=== PATIENT | male | born 1940 | race Caucasian/White ===

== ENCOUNTER 2019-03-13 20:58 | Inpatient (IN) | payer OTHER, BC ==
[~2019-03-13] VITALS: Ht 182.9 cm; Wt 103.0 kg
[2019-03-13 21:05] VITALS: Ht 182.9 cm; Wt 103.0 kg
[2019-03-13 21:20] LABS: BASOPHIL % 0.6 % (0-2); PLATELET COUNT 182 x10^3mcL (130-400); RED CELL DISTRIBUTION WIDTH 13.4 % (11.5-14.5)
[2019-03-13 21:38] LABS: CALCIUM 8.4 mg/dL (8.5-10.1); CARBON DIOXIDE 27.7 mmol/L (21-32); CHLORIDE SERUM 107 mmol/L (98-107); CREATININE SERUM 1.4 mg/dL (0.7-1.3); GLUCOSE SERUM 137 mg/dL (74-106); POTASSIUM SERUM 3.1 mmol/L (3.5-5.1); SODIUM SERUM 145 mmol/L (136-145)
[2019-03-13 21:41] LABS: ALBUMIN 3.2 g/dL (3.4-5.0); ALKALINE PHOSPHATASE 41 U/L (46-116); ALT/SGPT 40 U/L (16-63); AST/SGOT 25 U/L (15-37); BILIRUBIN TOTAL 0.4 mg/dL (0.20-1.00); TOTAL PROTEIN, SERUM 6.5 g/dL (6.4-8.2)
[2019-03-13 23:27] LABS: PHOSPHOROUS 3.3 mg/dL (2.5-4.9)
[2019-03-13 23:29] LABS: CHOLESTEROL/HDL RATIO 4.7
[2019-03-14 01:00] VITALS: BP 107/77
[2019-03-14 02:17] LABS: microscopic required? YES; urine erythrocyte TRACE (NEGATIVE)
[2019-03-14 02:29] LABS: AMPHETAMINE QUAL UR NONE DETECTED (See below)
[2019-03-14 05:38] VITALS: BP 125/71
[2019-03-14 07:25] LABS: BASOPHIL % 0.4 % (0-2); PLATELET COUNT 165 x10^3mcL (130-400); RED CELL DISTRIBUTION WIDTH 13.2 % (11.5-14.5)
[2019-03-14 07:59] LABS: CALCIUM 7.7 mg/dL (8.5-10.1); CARBON DIOXIDE 26.5 mmol/L (21-32); CHLORIDE SERUM 109 mmol/L (98-107); CREATININE SERUM 1.2 mg/dL (0.7-1.3); GLUCOSE SERUM 99 mg/dL (74-106); MAGNESIUM 1.8 mg/dL (1.8-2.4); PHOSPHOROUS 3.2 mg/dL (2.5-4.9); POTASSIUM SERUM 4.5 mmol/L (3.5-5.1); SODIUM SERUM 144 mmol/L (136-145)
[2019-03-14 08:28] VITALS: BP 115/64
[2019-03-14 11:59] VITALS: BP 125/63
[2019-03-14 12:55] VITALS: BP 134/76
== END 2019-03-14 13:48 | disposition home or self-care (01) | DRG 391 ==
LOC: ED 20:58 → DU 22:34
PROVIDERS: Emergency Medicine; Internal Medicine; ADMIT Internal Medicine
PROC: 0HQMXZZ Repair Right Foot Skin, External Approach (ICD-10-PCS; principal; 2019-03-13)
DX: A08.4 Viral intestinal infection, unspecified (principal); N17.0 Acute kidney failure with tubular necrosis; E44.1 Mild protein-calorie malnutrition; E86.0 Dehydration; I95.9 Hypotension, unspecified; R55 Syncope and collapse; S91.001A Unspecified open wound, right ankle, initial encounter; E87.6 Hypokalemia; I48.91 Unspecified atrial fibrillation; E11.9 Type 2 diabetes mellitus without complications; Z68.29 Body mass index [BMI] 29.0-29.9, adult; Z85.46 Personal history of malignant neoplasm of prostate; Z79.84 Long term (current) use of oral hypoglycemic drugs; Z79.01 Long term (current) use of anticoagulants; X58.XXXA Exposure to other specified factors, initial encounter; Y92.009 Unspecified place in unspecified non-institutional (private) residence as the place of occurrence of the external cause
CPT/HCPCS: 82962; 83880; 87046; 87046-59; 97116-GP; G0378; J2001; J2405; J7030; Q0092